=== PATIENT | female | born 1975 | race Caucasian/White ===

== ENCOUNTER 2018-12-01 09:10 | Day surgery (SDC) | payer BC ==
[2018-11-28 13:15] VITALS: BMI 23.3
[2018-12-01 09:42] VITALS: TEMP 98.1
[2018-12-01] MEDS ORDERED: LACTATED RINGERS 1,000 ML IV ONE (09:47)
[2018-12-01] MEDS ORDERED: LIDOCAINE 1% 20 ML VIAL (10MG/ML) FOR IV START INTRADERMA ONE (09:48)
[2018-12-01] MEDS ORDERED: PROPOFOL 10 MG/ML 20 ML VIAL IV ONE (10:37)
--- NOTE | 2018-12-01 11:12 | P.PCN ---
Date of Procedure: 12/01/18 Procedure(s) Performed: Brief history: Patient is a pleasant 43-year-old pleasant white female, scheduled for an elective upper endoscopy as well as colonoscopy as a part of evaluation of iron deficiency anemia. She denies any GI symptoms. Has occasional heartburn. Procedure performed: Esophagogastroduodenoscopy with biopsy Colonoscopy Preoperative diagnosis: Iron deficiency anemia/blood Anesthesia: MAC Procedure: After informed consent was obtained from the patient was brought into the end oscopy unit and IV sedation was administered by anesthesia under continuous monitoring. Initially upper endoscopy was done. The Olympus GF 160 video endoscope was inserted inserted into the mouth and esophagus intubated without any difficulty and was gradually advanced into the stomach and duodenum and carefully examined. The bulb and second part of the duodenum appeared normal. Biopsies were done from the duodenum to rule out celiac disease. The scope was then withdrawn into the stomach adequately insufflated with air and upon careful examination the antrum mild gastritis and biopsies were done from this area. The body, cardia and fundus appeared normal. The scope was then withdrawn into the esophagus. The GE junction was located at 40 cm to the incisors. It appeared regular with no erythema erosions or ulcerations. Rest of the esophagus appeared normal. Patient tolerated the procedure well. At this time the patient continued to remain sedation. Initial digital rectal e xamination was normal. Olympus CF 160 video colonoscope was then inserted into the rectum and gradually advanced to the cecum without any difficulty. Careful examination was performed as the scope was gradually being withdrawn. The prep was excellent. The cecum, ascending colon, transverse colon, descending colon, sigmoid colon and rectum appeared normal. Retroflexion was performed in the rec modesto and no lesions were noted. Patient tolerated the procedure well. Impression: 1. Upper endoscopy revealed mild antral gastritis but no runs of esophagitis or peptic ulcer disease 2. Colonoscopy was within normal limits with no evidence of colitis or colorectal neoplasia Recommendations: Findings of this examination were discussed with the patient as well as a family. She was advised to follow with the biopsy results.
[2018-12-01 11:36] VITALS: BP 102/63; PULSE 77; RESP 16
== END 2018-12-01 11:51 | disposition home or self-care (01) ==
LOC: ORWHC2ENDO 09:10
PROVIDERS: ATTEND Internal Medicine Gastroenterology
DX: D50.9 Iron deficiency anemia, unspecified (principal); K29.70 Gastritis, unspecified, without bleeding; K21.9 Gastro-esophageal reflux disease without esophagitis; J45.909 Unspecified asthma, uncomplicated; Z79.51 Long term (current) use of inhaled steroids; Z79.899 Other long term (current) drug therapy; Z88.1 Allergy status to other antibiotic agents; Z88.5 Allergy status to narcotic agent
CPT/HCPCS: 45378; 43239; 88305; 81025; J2704

== ENCOUNTER → 2018-12-15 | Outpatient (CLI) | payer BC ==
--- NOTE | 2018-12-16 12:04 | ECHOF ---
Referral Reason:R60.9 Edema MEASUREMENTS -------- HEIGHT: 165.1 cm WEIGHT: 62.6 kg BP: IVSd: 0.9 cm (0.6 - 1.1) LVIDd: 3.8 cm (3.9 - 5.3) LVPWd: 0.9 cm (0.6 - 1.1) IVSs: 1.4 cm LVIDs: 2.4 cm LVPWs: 1.7 cm LAESV Index (A-L): 14.52 ml/m Ao Diam: 2.6 cm (2.0 - 3.7) AV Cusp: 1.8 cm (1.5 - 2.6) LA Diam: 2.5 cm (2.7 - 3.8) MV EXCURSION: 18.048 mm (> 18.000) MV EF SLOPE: 143 mm/s (70 - 150) EPSS: 0.5 cm MV E Tristan: 0.80 m/s MV DecT: 204 ms MV A Tristan: 0.69 m/s MV E/A Ratio: 1.16 RAP: 5.00 mmHg RVSP: 21.70 mmHg FINDINGS -------- Sinus rhythm. This was a technically good study. The left ventricular size is normal. Left ventricular wall thickness is normal. Overall left vent ricular systolic function is normal with, an EF between 55 - 60 %. The diastolic filling pattern is normal for the age of the patient 7.35. The right ventricle is normal in size. The left atrial size is normal. The right atrial size is normal. Interatrial and interventricular septum intact. The aortic valve is trileaflet and appears structurally normal. The mitral valve is normal. There is trace mitral regurgitation. The tricuspid valve appears structurally normal. Trace tricuspid regurgitation present. Right misty tricular systolic pressure is normal at < 35 mmHg. There is no pulmonic regurgitation present. The aortic root size is normal. Normal inferior vena cava with normal inspiratory collapse consistent with estimated right atrial pre ssure of 5 mmHg. There is no pericardial effusion. CONCLUSIONS -------- 1. Sinus rhythm. 2. This was a technically good study. 3. The left ventricular size is normal. 4. Left ventricular wall thickness is normal. 5. Overall left ventricular systolic function is normal with, an EF between 55 - 60 %. 6. The diastolic filling pattern is normal for the age of the patient 7.35 7. The right ventricle is normal in size. 8. The left atrial size is normal. 9. The right atrial size is normal. 10. Interatrial and interventricular septum intact. 11. The aortic valve is trileaflet and appears structurally normal. 12. The mitral valve is normal. 13. There is trace mitral regurgitation. 14. The tricuspid valve appears structurally normal. 15. Trace tricuspid regurgitation present. 16. Right ventricular systolic pressure is normal at < 35 mmHg. 17. There is no pulmonic regurgitation present. 18. The aortic root size is normal. 19. Normal inferior vena cava with normal inspiratory collapse consistent with estimated right atrial pressure of 5 mmHg. 20. There is no pericardial effusion. TDP DISPLAYS ANALYST: Hilaria Cook RDCS
== END | disposition home or self-care (01) ==
LOC: RADECHMAIN 12:36
PROVIDERS: ATTEND Internal Medicine
DX: R60.9 Edema, unspecified (principal)
CPT/HCPCS: 93306

== ENCOUNTER → 2019-07-20 | Outpatient (CLI) | payer BC ==
[2019-07-20 09:11] LABS: Basophils # (A) 0.1 k/uL (0-0.2); Basophils % (A) 1 %; Eosinophils # (A) 0.1 k/uL (0-0.7); Eosinophils % (A) 1 %; HCT 46.1 % (34.0-46.0); Lymphocytes % (A) 29 %; MCH 29.3 pg (25.0-35.0); MCHC 32.6 g/dL (31.0-37.0); MCV 89.8 fL (80.0-100.0); Mean Platelet Volume 7.4; Monocytes # (A) 0.4 k/uL (0-1.0); Monocytes % (A) 5 %; Neutrophils # (A) 4.4 k/uL (1.3-7.7); Neutrophils % (A) 62 %; Platelet Count 327 k/uL (150-450); RBC 5.14 m/uL (3.80-5.40); RDW 12.1 % (11.5-15.5); WBC 7.1 k/uL (3.8-10.6)
[2019-07-20 16:39] LABS: Albumin 4.6 g/dL (3.80-4.90); Albumin/Globulin Ratio 3.54 (1.60-3.17); Anion Gap 9.4 mmol/L (4.00-12.00); Calcium 9.7 mg/dL (8.7-10.3); Carbon Dioxide 25.6 mmol/L (21.6-31.8); Chol/HDL Ratio 3.91; Globulin 1.3 g/dL (1.6-3.3); LDL Cholesterol,Calculated 126.4 mg/dL (0.0-131.0); Non-African American GFR(CKD) 106.1 (60.0-200.0); Potassium 4.6 mmol/L (3.5-5.5); Total Bilirubin 0.4 mg/dL (0.2-1.2); Total Protein 5.9 g/dL (6.2-8.2); VLDL Calculation 39.6 mg/dL (5.00-40.00)
[2019-07-20 17:50] LABS: Egg White IgE 0.11 kU/L
[2019-07-20 17:52] LABS: Codfish IgE <0.10 kU/L; Peanut IgE <0.10 kU/L; Soybean IgE <0.10 kU/L
[2019-07-20 17:53] LABS: Clam IgE <0.10 kU/L; Scallop IgE <0.10 kU/L; Shrimp IgE <0.10 kU/L; Walnut IgE (Food) <0.10 kU/L
[2019-07-20 18:58] LABS: Hemoglobin A1C 5.2 % (4.0-6.0)
== END | disposition home or self-care (01) ==
LOC: LABWHC1 08:15
PROVIDERS: ATTEND Internal Medicine
DX: D80.0 Hereditary hypogammaglobulinemia (principal); J45.909 Unspecified asthma, uncomplicated; E78.5 Hyperlipidemia, unspecified; Z91.018 Allergy to other foods
CPT/HCPCS: 36415; 80053; 80061; 82785; 83036; 84443; 85025; 86003

== ENCOUNTER → 2019-08-19 | Outpatient (CLI) | payer BC ==
--- NOTE | 2019-08-19 10:43 | MM ---
Reason for exam: screening (asymptomatic). Last mammogram was performed 2 years and 1 month ago. History: Patient history of other cancer. Physical Findings: A clinical breast exam by your physician is recommended on an annual basis and results should be correlated with mammographic findings. MG Screening Mammo w CAD Bilateral CC and MLO view(s) were taken. Prior study comparison: July 26, 2017, mammogram. The breast tissue is heterogeneously dense. This may lower the sensitivity of mammography. There are benign appearing round calcifications in the left breast. There is no discrete abnormality. ASSESSMENT: Benign, BI-RAD 2 RECOMMENDATION: Routine screening mammogram of both breasts in 1 year.
== END | disposition home or self-care (01) ==
LOC: RADMAMWWP 08:35
PROVIDERS: ATTEND Internal Medicine
DX: Z12.31 Encounter for screening mammogram for malignant neoplasm of breast (principal)
CPT/HCPCS: 77067

== ENCOUNTER → 2020-09-29 | Outpatient (CLI) | payer BC ==
[2020-09-29 09:19] LABS: Basophils # (A) 0.1 k/uL (0-0.2); Basophils % (A) 1 %; Eosinophils # (A) 0.1 k/uL (0-0.7); Eosinophils % (A) 3 %; HCT 41.1 % (34.0-46.0); Lymphocytes # (A) 1.3 k/uL (1.0-4.8); Lymphocytes % (A) 22 %; MCH 29.8 pg (25.0-35.0); MCHC 34.2 g/dL (31.0-37.0); MCV 87.2 fL (80.0-100.0); Mean Platelet Volume 7.2; Monocytes # (A) 0.3 k/uL (0-1.0); Monocytes % (A) 6 %; Neutrophils # (A) 3.9 k/uL (1.3-7.7); Neutrophils % (A) 68 %; Platelet Count 343 k/uL (150-450); RBC 4.72 m/uL (3.80-5.40); RDW 12.3 % (11.5-15.5); WBC 5.8 k/uL (3.8-10.6)
[2020-09-29 10:25] LABS: T4, Free (Free Thyroxine) 1.03 ng/dL (0.78-2.19)
[2020-09-29 11:03] LABS: ALT 19 U/L (4-34); AST 26 U/L (14-36); African American GFR (CKD) >90 (>60 ml/min/1.73 sqM); Albumin 4.3 g/dL (3.5-5.0); Alkaline Phosphatase 88 U/L (38-126); Anion Gap 7 mmol/L; Blood Urea Nitrogen 8 mg/dL (7-17); Calcium 9.7 mg/dL (8.4-10.2); Carbon Dioxide 25 mmol/L (22-30); Chloride 106 mmol/L (98-107); Cholesterol 258 mg/dL (<200); Glucose 96 mg/dL (74-99); HDL Cholesterol 58 mg/dL (40-60); LDL Cholesterol,Calculated 168 mg/dL (0-99); Non-African American GFR(CKD) >90 (>60 ml/min/1.73 sqM); Potassium 4.2 mmol/L (3.5-5.1); Sodium 138 mmol/L (137-145); Total Bilirubin 0.6 mg/dL (0.2-1.3); Total Protein 6.4 g/dL (6.3-8.2); Triglycerides 158 mg/dL (<150)
[2020-09-30 02:06] LABS: % Iron Saturation 22.74 (12.00-45.00); Iron 83 ug/dL (50-170); Total Iron Binding Capacity 365 ug/dL (228-460)
--- NOTE | 2020-09-30 13:53 | MM ---
Reason for exam: screening (asymptomatic). Last mammogram was performed 1 year and 1 month ago. History: Patient history of other cancer. Physical Findings: A clinical breast exam by your physician is recommended on an annual basis and results should be correlated with mammographic findings. MG Screening Mammo w CAD Bilateral CC and MLO view(s) were taken. XCCL view(s) were taken of the right breast. Prior study comparison: August 19, 2019, bilateral MG screening mammo w CAD. July 26, 2017, mammogram. The breast tissue is heterogeneously dense. This may lower the sensitivity of mammography. Benign calcifications. No significant changes when compared with prior studies. ASSESSMENT: Benign, BI-RAD 2 RECOMMENDATION: Routine screening mammogram of both breasts in 1 year.
== END | disposition home or self-care (01) ==
LOC: RADMAMWWP 08:39
PROVIDERS: ATTEND Internal Medicine Geriatric Medicine
DX: Z12.31 Encounter for screening mammogram for malignant neoplasm of breast (principal); R73.9 Hyperglycemia, unspecified; D50.9 Iron deficiency anemia, unspecified; E78.5 Hyperlipidemia, unspecified; E55.9 Vitamin D deficiency, unspecified
CPT/HCPCS: 36415; 77067; 80053; 80061; 82306; 82607; 83036; 83540; 83550; 84439; 84443; 85025

== ENCOUNTER → 2021-05-05 | Outpatient (CLI) | payer BC, OTHER | END | disposition home or self-care (01) | LOC: LABWHC1 10:40 | PROVIDERS: ATTEND Emergency Medicine | DX: Z20.822 Contact with and (suspected) exposure to COVID-19 (principal) | CPT/HCPCS: 87635 ==

== ENCOUNTER → 2021-05-08 | Outpatient (CLI) | payer BC, OTHER | END | disposition home or self-care (01) | LOC: LABWHC1 09:31 | PROVIDERS: ATTEND Emergency Medicine | DX: U07.1 COVID-19 (principal) | CPT/HCPCS: 87635 ==

== ENCOUNTER → 2021-05-10 | Outpatient (CLI) | payer BC ==
[~2021-05-10] MED LIST: SODIUM CHLORIDE 0.9% 50 ML IVPB ONE; SODIUM CHLORIDE 0.9% 500 ML 500 ML in EMPTY BAG 1 BAG IV PRN; SOTROVIMAB (EUA) 500 MG in SODIUM CHLORIDE 0.9% 100 ML IVPB NR
[2021-05-10 09:35] VITALS: RESP 16; TEMP 98.3
[2021-05-10 09:56] VITALS: BP 115/68; PULSE 73
== END ==
LOC: PROCWHC3 08:16
PROVIDERS: ATTEND Nurse Practitioner Family
DX: U07.1 COVID-19 (principal); J45.909 Unspecified asthma, uncomplicated; Z88.5 Allergy status to narcotic agent; Z88.1 Allergy status to other antibiotic agents
CPT/HCPCS: 96361; Q0247; M0247

== ENCOUNTER → 2021-11-09 | Outpatient (CLI) | payer BC ==
--- NOTE | 2021-11-11 14:36 | MM ---
Reason for Exam: Screening (asymptomatic). Last mammogram was performed 1 year(s) and 2 month(s) ago. Patient History: Menarche at age 13. First Full-Term at age 28. Other cancer. Last menstrual period: 10/25/2021 Risk Values: Mandy 5 year model risk: 0.9%. NCI Lifetime model risk: 10.6%. Prior Study Comparison: 07/26/2017 Screening Mammogram, Unknown. 08/19/2019 Bilateral Screening Mammogram, [facility]. 09/29/2020 Bilateral Screening Mammogram, [facility]. Tissue Density: The breast tissue is heterogeneously dense. This may lower the sensitivity of mammography. Findings: Analyzed By CAD. Dense tissues are present in the upper-outer quadrant in a background of scattered density. No significant change from prior exams. Overall Assessment: Negative, BI-RAD 1 Management: Screening Mammogram of both breasts in 1 year. A clinical breast exam by your physician is recommended on an annual basis and results should be correlated with mammographic findings. Also, the patient should continue monthly self breast exams. Electronically signed and approved by: Zulay Britton M.D. Radiologist
== END | disposition home or self-care (01) ==
LOC: RADMAMWWP 08:13
PROVIDERS: ATTEND Internal Medicine Geriatric Medicine
DX: Z12.31 Encounter for screening mammogram for malignant neoplasm of breast (principal)
CPT/HCPCS: 77067

== ENCOUNTER → 2022-03-08 | Outpatient (CLI) | payer BC ==
[2022-03-08 14:30] LABS: Basophils # (A) 0.05 X 10*3/uL (0.00-0.10); Basophils % (A) 1.1 %; Eosinophils # (A) 0.08 X 10*3/uL (0.04-0.35); Eosinophils % (A) 1.7 %; HCT 35.7 % (37.2-46.3); Immature Grans, Automated 0.4 %; Lymphocytes # (A) 1.46 X 10*3/uL (0.90-5.00); Lymphocytes % (A) 31.3 %; MCH 24.4 pg (27.0-32.0); MCHC 30.8 g/dL (32.0-37.0); MCV 79.3 fL (80.0-97.0); Mean Platelet Volume 9.9 fL (9.5-12.2); Monocytes # (A) 0.33 X 10*3/uL (0.20-1.00); Monocytes % (A) 7.1 %; NRBC Per 100 WBC 0 /100 WBCS (0.0-0.0); Neutrophils # (A) 2.72 X 10*3/uL (1.80-7.70); Neutrophils % (A) 58.4 %; Platelet Count 416 X 10*3/uL (140-440); RDW 14.1 % (11.5-14.5); WBC 4.66 X 10*3/uL (4.50-10.00)
[2022-03-08 17:10] LABS: ALT 17 U/L (8-44); AST 23 U/L (13-35); African American GFR (CKD) 121.2 (60.0-200.0); Albumin 4.3 g/dL (3.8-4.9); Albumin/Globulin Ratio 2.23 (1.60-3.17); Alkaline Phosphatase 85 U/L (41-126); BUN/Creat Ratio 14.06 Ratio (12.00-20.00); Blood Urea Nitrogen 9.7 mg/dL (9.0-27.0); Calcium 9.1 mg/dL (8.7-10.3); Carbon Dioxide 23.1 mmol/L (20.0-27.5); Chloride 105 mmol/L (96-109); Chol/HDL Ratio 5.33 Ratio; Globulin 1.9 g/dL (1.6-3.3); Glucose 91 mg/dL (70-110); LDL Cholesterol,Calculated 165.9 mg/dL (0.0-131.0); Non-African American GFR(CKD) 104.6 (60.0-200.0); Potassium 4.3 mmol/L (3.5-5.5); Sodium 140 mmol/L (135-145); Total Protein 6.3 g/dL (6.2-8.2)
== END | disposition home or self-care (01) ==
LOC: LABWHC1 09:39
PROVIDERS: ATTEND Internal Medicine Geriatric Medicine
DX: E78.5 Hyperlipidemia, unspecified (principal); E55.9 Vitamin D deficiency, unspecified; R73.9 Hyperglycemia, unspecified
CPT/HCPCS: 36415; 80053; 80061; 82306; 83036; 84439; 84443; 85025

== ENCOUNTER → 2023-01-15 | Outpatient (CLI) | payer BC ==
--- NOTE | 2023-01-16 09:37 | MM ---
Reason for Exam: Screening (asymptomatic). Last mammogram was performed 1 year(s) and 2 month(s) ago. Patient History: Menarche at age 13. First Full-Term at age 28. Last menstrual period: 01/12/2023 Risk Values: Mandy 5 year model risk: 0.9%. NCI Lifetime model risk: 10.5%. Prior Study Comparison: 08/19/2019 Bilateral Screening Mammogram, [facility]. 09/29/2020 Bilateral Screening Mammogram, [facility] 11/09/2021 Bilateral MG screening mammo w CAD, [facility]. Tissue Density: The breast tissue is heterogeneously dense. This may lower the sensitivity of mammography. Findings: Analyzed By CAD. There is no suspicious group of microcalcifications or new suspicious mass in either breast. Overall Assessment: Negative, BI-RAD 1 Management: Screening Mammogram of both breasts in 1 year. . Patient should continue monthly self-breast exams. A clinical breast exam by your physician is recommended on an annual basis. This exam should not preclude additional follow-up of suspicious palpable abnormalities. Note on Mandy scores and lifetime risk: 1. A Mandy score greater than 3% is considered moderate risk. If this is the case, consider specialist referral to assess eligibility for a risk reducing agent. 2. If overall lifetime risk for the development of breast cancer is 20% or higher, the patient may qualify for future screening with alternating mammogram and breast MRI. Electronically signed and approved by: Truman Maya M.D. Radiologis
== END | disposition home or self-care (01) ==
LOC: RADMAMWWP 13:14
PROVIDERS: ATTEND Internal Medicine Geriatric Medicine
DX: Z12.31 Encounter for screening mammogram for malignant neoplasm of breast (principal)
CPT/HCPCS: 77067

== ENCOUNTER 2023-10-01 07:06 | Day surgery (SDC) | payer BC ==
[2023-10-01] MEDS: LACTATED RINGERS 1,000 ML IV SCH (07:36)
[2023-10-01 07:59] VITALS: TEMP 97.3
[2023-10-01] MEDS ORDERED: LIDOCAINE 1% INJ 10MG/ML (20 ML MDV) ONE (08:17)
[2023-10-01] MEDS ORDERED: PROPOFOL 10 MG/ML 20 ML VIAL IV ONE (08:17)
--- NOTE | 2023-10-01 08:27 | P.PCN ---
Date of Procedure: 10/01/23 Procedure(s) Performed: BRIEF HISTORY: Patient is a 48-year-old, pleasant, white female scheduled for endoscopy as a part of evaluation of longstanding history of GERD/Marr's esophagus.. PROCEDURE PERFORMED: Esophagogastroduodenoscopy with biopsy PREOPERATIVE DIAGNOSIS: GERD/Marr's esophagus. IV sedation per anesthesia. PROCEDURE: After informed consent was obtained, the patient was brought into the endoscopy unit. IV sedation was administered by Anesthesia under continuous monitoring. Initially the Olympus GIF-140 video endoscope was inserted into the mouth. Esophagus intubated without any difficulty. It was gradually advanced into the stomach and duodenum and carefully examined. The bulb and the second part of the duodenum appeared normal. The scope at this time was withdrawn to the stomach, adequately insufflated with air, and upon careful examination, mucosa of the antrum, had mild antral gastritis and biopsies were done from this area. Mucosa of the body, cardia and the fundus appeared normal. The scope was then withdrawn into the esophagus. The GE junction was located at 39 cm from the incisors. The esophagus appeared normal. There were no erosions or ulcerations seen and the patient tolerated the procedure well. IMPRESSION: 1. Mild antral gastritis 2. No evidence of esophagitis or Marr's esophagus. RECOMMENDATIONS: The findings of this examination were discussed with the patient as well as her family. She was advised to follow-up with the biopsy results. Continue with omeprazole 20 mg daily and follow antireflux measures..
[2023-10-01 08:48] VITALS: RESP 18
[2023-10-01 09:34] VITALS: BP 110/74; PULSE 67
== END 2023-10-01 09:14 | disposition home or self-care (01) ==
LOC: ORWHC2ENDO 07:06
PROVIDERS: ATTEND Internal Medicine Gastroenterology
DX: K29.50 Unspecified chronic gastritis without bleeding (principal); K22.70 Barrett's esophagus without dysplasia; K21.9 Gastro-esophageal reflux disease without esophagitis; E78.5 Hyperlipidemia, unspecified; J45.909 Unspecified asthma, uncomplicated; F41.9 Anxiety disorder, unspecified; F32.A Depression, unspecified; Z79.899 Other long term (current) drug therapy; Z88.5 Allergy status to narcotic agent; Z88.1 Allergy status to other antibiotic agents; Z90.49 Acquired absence of other specified parts of digestive tract
CPT/HCPCS: 81025; 88305; 88342; 43239; J2001; J2704

== ENCOUNTER → 2024-01-20 | Outpatient (CLI) | payer BC ==
--- NOTE | 2024-02-07 20:28 | MM ---
Reason for Exam: Screening (asymptomatic). Last screening mammogram was performed 12 month(s) ago. Patient History: Menarche at age 13. First Full-Term at age 28. Risk Values: Mandy 5 year model risk: 1.0%. NCI Lifetime model risk: 10.3%. Prior Study Comparison: 09/29/2020 Bilateral Screening Mammogram, [facility]. 11/09/2021 Bilateral MG screening mammo w CAD, [facility]. 01/15/2023 Bilateral MG screening mammo w CAD, [facility]. Tissue Density: There are scattered areas of fibroglandular density. Findings: Analyzed By CAD. Asymmetric density central inner aspect of the left breast on the CC view middle to posterior depth, 7.8 cm from the nipple, is more defined. This may represent superimposition shadow but further evaluation is recommended. Otherwise, no significant change. Overall Assessment: Incomplete: need additional imaging evaluation, BI-RAD 0 Management: Special View Mammogram of the left breast. Diagnostic Breast Ultrasound of the left breast. . [facility] will attempt to contact patient to return for supplemental views and ultrasound if indicated. Electronically signed and approved by: Zulay Britton M.D. Radiologist
== END | disposition home or self-care (01) ==
LOC: RADMAMWWP 14:44
PROVIDERS: ATTEND Internal Medicine Geriatric Medicine
DX: Z12.31 Encounter for screening mammogram for malignant neoplasm of breast
CPT/HCPCS: 77067

== ENCOUNTER → 2024-02-13 | Outpatient (CLI) | payer BC ==
--- NOTE | 2024-02-13 11:08 | MM ---
Reason for Exam: Additional evaluation requested from abnormal screening. Last screening mammogram was performed less than 1 month ago. Patient History: Menarche at age 13. First Full-Term at age 28. Premenopausal. Paternal aunt had ovarian cancer under age 50. Mother had ovarian cancer, age 27. Last menstrual period: 01/30/2024 Risk Values: Mandy 5 year model risk: 1.0%. NCI Lifetime model risk: 10.3%. Prior Study Comparison: 07/26/2017 Screening Mammogram, Unknown. 08/19/2019 Bilateral Screening Mammogram, [facility]. 09/29/2020 Bilateral Screening Mammogram, [facility]. 11/09/2021 Bilateral MG screening mammo w CAD, [facility]. 01/15/2023 Bilateral MG screening mammo w CAD, [facility]. 01/20/2024 Bilateral MG screening mammo w CAD, [facility]. Tissue Density: Left: The breasts are heterogeneously dense, which may obscure small masses. Findings: Analyzed By CAD. Stellate density likely reflecting summation however ultrasound is recommended at the left 11 to 12:00 position 7.6 cm. Overall Assessment: Incomplete: need additional imaging evaluation, BI-RAD 0 Management: Diagnostic Breast Ultrasound of the left breast. . Results were given to the patient verbally at the time of exam. Patient should continue monthly self-breast exams. A clinical breast exam by your physician is recommended on an annual basis. This exam should not preclude additional follow-up of suspicious palpable abnormalities. Note on Mandy scores and lifetime risk: 1. A Mandy score greater than 3% is considered moderate risk. If this is the case, consider specialist referral to assess eligibility for a risk reducing agent. 2. If overall lifetime risk for the development of breast cancer is 20% or higher, the patient may qualify for future screening with alternating mammogram and breast MRI. Electronically signed and approved by: Truman Maya M.D. Radiologis
--- NOTE | 2024-02-13 11:50 | USB ---
Reason for Exam: Additional evaluation requested from abnormal screening. Patient History: Menarche at age 13. First Full-Term at age 28. Premenopausal. Paternal aunt had ovarian cancer under age 50. Mother had ovarian cancer, age 27. Risk Values: Mandy 5 year model risk: 1.0%. NCI Lifetime model risk: 10.3%. Technique: Method: Targeted. Prior Study Comparison: 11/09/2021 Bilateral MG screening mammo w CAD, [facility]. 01/15/2023 Bilateral MG screening mammo w CAD, [facility]. 01/20/2024 Bilateral MG screening mammo w CAD, [facility]. Findings: The upper inner quadrant of the left breast, the axilla of the left breast and the retroareolar of the left breast were scanned. Massive shadowing seen at the left 11:00 position 6 cm from the nipple. Further imaging was obtained by the undersigned any distinct persistent mass is not felt to be present. Precautionary three-month follow-up is advised. Simple cyst left 11:00 position measuring 0.7 x 0.7 cm. Complex cyst left 12:00 4 cm from the nipple measuring 8 x 4 mm.. Overall Assessment: Probably benign, BI-RAD 3 Management: Diagnostic Breast Ultrasound of the left breast in 3 months. A clinical breast exam by your physician is recommended on an annual basis and results should be correlated with mammographic findings. This exam should not preclude additional follow-up of suspicious palpable abnormalities. Results were given to the patient verbally at the time of exam. Electronically signed and approved by: Truman Maya M.D. Radiologis
== END | disposition home or self-care (01) ==
LOC: RADMAMWWP 10:09
PROVIDERS: ATTEND Internal Medicine Geriatric Medicine
DX: R92.8 Other abnormal and inconclusive findings on diagnostic imaging of breast
CPT/HCPCS: 77061; 77065

== ENCOUNTER → 2024-03-09 | Outpatient (CLI) | payer BC ==
--- NOTE | 2024-03-09 16:31 | US ---
EXAMINATION TYPE: US transvaginal DATE OF EXAM: 03/09/2024 COMPARISON: NONE CLINICAL INDICATION: Female, 49 years old with history of R102 PELVIC PAIN; Family hx of cancer. Pat ient states having normal paps TECHNIQUE: Transvaginal (TV) FINDINGS: Date of LMP: 02/24/2024, EXAM MEASUREMENTS: Uterus: 10.3 x 4.9 x 4.6 cm Endometrial Stripe: 0.9 cm Right Ovary: 2.7 x 1.8 x 1.8 cm Left Ovary: 2.7 x 1.9 x 1.7 cm 1. Uterus: Anteverted Heterogenous 2. Endometrium: Slightly heterogenous 3. Right Ovary: Follicle seen 4. Left Ovary: Complex area with peripheral vascularity 5. Bilateral Adnexa: no free fluid 6. Posterior cul-de-sac: no free fluid Cervix- possible tissue vs lesion seen, vascular = 1.8 x 0.7 cm. Fluid in cervical canal. IMPRESSION: 1. Uterus and endometrium are slightly heterogeneous and the uterus measures 9 mm correlate with phas e of menstrual cycle. Endometrial pathology not excluded. 2. There is a 1.8 cm area of echogenicity within the cervix. Small amount of fluid noted. Endocervica l lesion in the differential diagnosis. 3. There is a complex area with peripheral vascularity within the left ovary measures approximately 1 .5 cm. MRI is recommended to assess all the above findings. Underlying neoplasm is not excluded. [facility], Workstation: [id number], 03/09/2024 4:29 PM
== END | disposition home or self-care (01) ==
LOC: RADUSWWP 15:28
PROVIDERS: ATTEND Internal Medicine Geriatric Medicine
DX: R10.2 Pelvic and perineal pain
CPT/HCPCS: 76830

== ENCOUNTER → 2024-03-17 | Outpatient (CLI) | payer BC ==
--- NOTE | 2024-03-19 14:56 | CT ---
EXAMINATION TYPE: CT abdomen pelvis w con CT DLP: 837.6 mGycm, Automated exposure control for dose reduction was used. 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 Coronal and sagittal reformats were performed. FINDINGS: LOWER CHEST: Minimal dependent bilateral lower lobe subsegmental atelectasis. Left lower lobe periphe ral 7 mm pulmonary nodule (series 5, image 6). Lingular 3 mm pulmonary nodule (series 5, image 8). ABDOMEN LIVER: Right hepatic dome 1.5 cm cyst and right inferior hepatic 2.4 cm cyst. GALLBLADDER AND BILE DUCTS: The gallbladder is surgically absent. No biliary duct dilatation. PANCREAS: Unremarkable. SPLEEN: Unremarkable. ADRENAL GLANDS: Unremarkable. KIDNEYS AND URETERS: No evidence of hydronephrosis or renal calculus. The kidneys enhance symmetrical ly. Contrast is demonstrated within both collecting systems on the delayed phase. PELVIS BLADDER: Unremarkable REPRODUCTIVE: Anteverted uterus. There is a 1.5 x 1.0 cm enhancing lesion within the region of the ce rvix correspond ultrasound. Right ovarian peripheral enhancing 1.5 cm lesion (series 4, image 73). Le ft ovarian peripheral enhancing 1.4 cm lesion (series 4, image 76). ABDOMEN & PELVIS STOMACH AND BOWEL: Stomach and duodenum are unremarkable. Enteric contrast reaches the distal colon. Mild to moderate clinically pertinent. No focal bowel wall thickening and stranding inflammatory cannon ges. The appendix is within normal limits. No evidence of bowel obstruction. PERITONEUM: No evidence of pneumoperitoneum or free fluid. VASCULATURE: No evidence of aortic aneurysm. MUSCULOSKELETAL: No acute osseous abnormalities. No aggressive osseous lesion. LYMPH NODES: No evidence for lymphadenopathy. SOFT TISSUE/ABDOMINAL WALL: Tiny fat filled umbilical hernia. IMPRESSION: 1. Enhancing 1.5 cm lesion within the cervix corresponding to recent ultrasound. Raises concern for cervical neoplasm. Additional indeterminate bilateral small rim-enhancing ovarian lesions. May repres ent corpus luteum versus other etiologies with ovarian benign or malignant neoplasm not excluded. Dir ect visualization with further evaluation with MR pelvis is recommended. 2. No lymphadenopathy. 3. Couple of left basilar indeterminate pulmonary nodules measuring up to 7 mm. Metastasis is not ex cluded. [facility], , 03/19/2024 12:42 PM
== END ==
LOC: RADCTMAIN 07:02
PROVIDERS: ATTEND Internal Medicine Geriatric Medicine
CPT/HCPCS: 74177

== ENCOUNTER → 2024-05-14 | Outpatient (CLI) | payer BC ==
--- NOTE | 2024-05-14 09:56 | USB ---
Reason for Exam: Follow-up at short interval from prior study. Patient History: Menarche at age 13. First Full-Term at age 28. Premenopausal. Paternal aunt had ovarian cancer under age 50. Mother had ovarian cancer, age 27. Risk Values: Mandy 5 year model risk: 1.0%. NCI Lifetime model risk: 10.2%. Technique: Method: Targeted. Prior Study Comparison: 01/15/2023 Bilateral MG screening mammo w CAD, [facility]. 01/20/2024 Bilateral MG screening mammo w CAD, [facility]. 02/13/2024 Left MG 3D work up w/cad , [facility]. Findings: The upper inner quadrant of the left breast, the axilla of the left breast and the retroareolar of the left breast were scanned. There is a stable cyst measuring 0.8 x 0.7 cm good through transmission and posterior wall enhancement at the 11:00 position 6 cm. There are couple of additional small cysts present nearby. Findings were present previously. Overall Assessment: Benign, BI-RAD 2 Management: Screening Mammogram of both breasts in 9 months. A clinical breast exam by your physician is recommended on an annual basis and results should be correlated with mammographic findings. This exam should not preclude additional follow-up of suspicious palpable abnormalities. Results were given to the patient verbally at the time of exam. [facility], , 05/14/2024 9:43 AM. Electronically signed and approved by: Juan Guzman D.O. Radiologis
== END | disposition home or self-care (01) ==
LOC: RADUSWWP 09:13
PROVIDERS: ATTEND Internal Medicine Geriatric Medicine
DX: R92.8 Other abnormal and inconclusive findings on diagnostic imaging of breast (principal)

== ENCOUNTER → 2024-08-28 | Outpatient (CLI) | payer BC ==
[2024-08-28 15:02] LABS: Basophils # (A) 0.06 X 10*3/uL (0.00-0.10); Basophils % (A) 0.9 %; Eosinophils # (A) 0.06 X 10*3/uL (0.04-0.35); Eosinophils % (A) 0.9 %; HCT 42.4 % (37.2-46.3); HGB 13.3 g/dL (12.0-15.0); Lymphocytes # (A) 1.86 X 10*3/uL (0.90-5.00); Lymphocytes % (A) 28.3 %; MCH 28.7 pg (27.0-32.0); MCHC 31.4 g/dL (32.0-37.0); MCV 91.4 FL (80.0-97.0); Mean Platelet Volume 11.2 FL (9.5-12.2); Monocytes % (A) 7.6 %; NRBC Per 100 WBC 0 X 10*3/uL (0.00-0.01); Neutrophils # (A) 4.07 X 10*3/uL (1.80-7.70); Platelet Count 314 X 10*3/uL (140-440); RBC 4.64 X 10*6/uL (4.10-5.20); RDW 13.2 % (11.5-14.5); WBC 6.57 X 10*3/uL (4.50-10.00)
[2024-08-28 16:36] LABS: ALT 22 U/L (8-44); AST 24 U/L (13-35); Albumin 4.3 g/dL (3.8-4.9); Albumin/Globulin Ratio 2.87 Ratio (1.60-3.17); Alkaline Phosphatase 81 U/L (41-126); Blood Urea Nitrogen 7.5 mg/dL (9.0-27.0); Calcium 9.4 mg/dL (8.7-10.3); Carbon Dioxide 23.3 mmol/L (21.6-31.8); Chloride 108 mmol/L (96-109); Chol/HDL Ratio 3.26 Ratio; Globulin 1.5 g/dL (1.6-3.3); Glucose 92 mg/dL (70-110); LDL Cholesterol,Calculated 66.1 mg/dL (0.0-131.0); Potassium 4.4 mmol/L (3.5-5.5); Sodium 142 mmol/L (135-145); T4, Free (Free Thyroxine) 1.04 ng/dL (0.80-1.80); Total Bilirubin 0.3 mg/dL (0.3-1.2); Total Protein 5.8 g/dL (6.2-8.2)
== END | disposition home or self-care (01) ==
LOC: LABWHC1 09:46
PROVIDERS: ATTEND Internal Medicine Geriatric Medicine
DX: Z00.00 Encounter for general adult medical examination without abnormal findings (principal); E55.9 Vitamin D deficiency, unspecified; E07.9 Disorder of thyroid, unspecified; E78.5 Hyperlipidemia, unspecified; R73.9 Hyperglycemia, unspecified
CPT/HCPCS: 36415; 80053; 80061; 82306; 83036; 84439; 84443; 85025